=== PATIENT | female | born 1990 | race Caucasian/White ===

== ENCOUNTER → 2023-11-18 12:15 | Outpatient (BNV) | payer OTHER, SELFPAY | PROVIDERS: Visit Provider Psychiatry & Neurology Psychiatry | DX: F31.9 Bipolar disorder, unspecified (principal); F90.2 Attention-deficit hyperactivity disorder, combined type; F50.81 Binge eating disorder; F43.10 Post-traumatic stress disorder, unspecified; F31.81 Bipolar II disorder | CPT/HCPCS: 90792; 99212; 99213; 99499 ==

== ENCOUNTER 2023-11-21 07:45 | Outpatient (REF) | payer OTHER, SELFPAY ==
--- NOTE | 2023-11-21 07:54 | ECG_ITS ---
Test Reason : qtc check Blood Pressure : / mmHG Vent. Rate : 085 BPM Atrial Rate : 085 BPM P-R Int : 134 ms QRS Dur : 076 ms QT Int : 372 ms P-R-T Axes : 037 036 020 degrees QTc Int : 442 ms Normal sinus rhythm Normal ECG No previous ECGs available Referred By: Lu Quiroga Electronically Signed By:ANDREW EATON MD
[2023-11-21 08:06] LABS: MANUAL DIFF FLAG NO
[2023-11-21 08:31] LABS: Basophils Absolute Auto 0.1 X10*3/uL (0.0-0.2); Basophils Percent Auto 0.7 % (0-2); Eosinophils Absolute Auto 0.1 X10*3/uL (0.0-0.4); Eosinophils Percent Auto 1.8 % (0-4); Imm Gran Abs Auto 0.01 X10*3/uL (0.00-0.03); Imm Gran Pct Auto 0.1 % (0.0-0.4); Lymphocytes Percent Auto 26.4 % (20-40); Mean Corpuscular HGB Conc 34.1 g/dl (31.0-35.0); Mean Corpuscular Hemoglobin 30.8 pg (27.0-33.0); Mean Corpuscular Volume 90.1 fL (80.0-98.0); Mean Platelet Volume 9.8 fL (9.4-12.3); Monocytes Absolute Auto 0.5 X10*3/uL (0.1-1.2); Monocytes Percent Auto 7.1 % (2-11); Neutrophils Absolute Auto 4.9 x10*3/uL (2.0-8.3); Neutrophils Percent Auto 63.9 % (45-73); Platelet Count 263 X10*3/uL (160-400); Red Blood Count 4.55 X10*6/uL (4.20-5.50); Red Cell Distribution Width 12.6 % (11.0-16.0); White Blood Count 7.6 X10*3/uL (4.8-10.8)
[2023-11-21 08:56] LABS: Alanine Aminotransferase 27 U/L (0-31); Albumin Level 4.1 g/dL (3.5-5.0); Alkaline Phosphatase 92 U/L (39-117); Anion Gap 12 (12-20); Aspartate Amino Transferase 16 U/L (5-31); Bilirubin Total 0.3 mg/dL (0.0-1.0); Blood Urea Nitrogen 14 mg/dL (9-16); Calcium 9.5 mg/dL (8.4-10.2); Carbon Dioxide 20 mmol/L (22-29); Chloride 108 mmol/L (96-108); Cholesterol 170 mg/dL (<200); Estimated Glomerular Filt Rate > 60; Glucose Fasting 126 mg/dL (60-99); HDL Cholesterol 31 mg/dL (>40); Iron 59 mcg/dL (30-160); LDL Cholesterol Calculated 97 mg/dL (<100); Magnesium 1.9 mg/dL (1.6-2.6); Percent Iron Saturation 23 % (15-50); Potassium 3.8 mmol/L (3.3-5.1); Sodium 136 mmol/L (135-145); Total Iron Binding Capacity 257 mcg/dL (228-428); Total Protein 7.1 g/dL (6.5-8.0); Triglycerides 213 mg/dL (<150); Unsaturated Iron Binding 198 ug/dL
[2023-11-21 09:15] LABS: Ferritin 113 ng/mL (10-122); Free T4 (Free Thyroxine) 0.84 ng/dL (0.71-1.85); Insulin 47 uU/mL (2-29); Thyroid Stimulating Hormone 1.77 uIU/mL (0.32-4.0); Vitamin D 25-OH Total 16.9 ng/mL (>30)
[2023-11-21 09:20] LABS: Appearance Urine Turbid; Color Urine Yellow; Glucose Urine UA Negative (Negative); Leukocyte Esterase Urine Small (1+) (Negative); Nitrite Urine Positive (Negative); PH 5.5 (5.0-9.0); Specific Gravity - Urine >= 1.030 (1.005-1.025); UMIC TRIGGER UA YES; Urine Blood Negative (Negative); Urine Ketones Trace mg/dL (Negative); Urine Protein Trace mg/dL (Neg-Trace)
[2023-11-21 09:21] LABS: UPreg QC Valid YES; Urine Pregnancy NEGATIVE (NEGATIVE)
[2023-11-21 09:26] LABS: Folate 9.1 ng/mL (> or = 4.0); Vitamin B12 201 pg/mL (200-900)
[2023-11-21 11:07] LABS: Bacteria Urine 3+ (None Seen); Calcium Oxalate Crystals Urine Present; Hyaline Casts Urine 0-2 /LPF (0-2); RBC Urine 0-2 /HPF (0-2); Squamous Epithelial Cell Urine >20 /HPF (0-2)
[2023-11-22 10:29] LABS: Prolactin 8.7 ng/mL
== END 2023-11-21 07:46 | disposition home or self-care (01) ==
LOC: HO.LAB 07:45
PROVIDERS: Visit Provider Psychiatry & Neurology Psychiatry
DX: F39 Unspecified mood [affective] disorder (principal); F41.3 Other mixed anxiety disorders; E28.2 Polycystic ovarian syndrome
CPT/HCPCS: 36415; 80053; 80061; 81001; 81025; 82306; 82607; 82728; 82746; 83525; 83540; 83735; 84146; 84439; 84443; 85025; 93005

== ENCOUNTER → 2023-11-21 07:54 | Outpatient (BNV) | payer OTHER, SELFPAY | PROVIDERS: Visit Provider Internal Medicine Cardiovascular Disease | DX: I45.9 Conduction disorder, unspecified (principal) | CPT/HCPCS: 93010 ==

== ENCOUNTER 2023-11-28 13:49 | Outpatient (REF) | payer OTHER, SELFPAY ==
[2023-11-28 14:56] LABS: Appearance Urine Cloudy; Color Urine Yellow; Glucose Urine UA Negative (Negative); Leukocyte Esterase Urine Small (1+) (Negative); Nitrite Urine Positive (Negative); UMIC TRIGGER UA YES; Urine Blood Negative (Negative); Urine Ketones Negative (Negative); Urine Protein Negative (Neg-Trace)
[2023-11-28 15:01] LABS: Bacteria Urine 4+ (None Seen); Hyaline Casts Urine 0-2 /LPF (0-2); RBC Urine 0-2 /HPF (0-2); WBC Urine 21-50 /HPF (0-5)
== END 2023-11-28 13:50 | disposition home or self-care (01) ==
LOC: HO.LAB 13:49
PROVIDERS: Visit Provider Psychiatry & Neurology Psychiatry
DX: N39.0 Urinary tract infection, site not specified (principal)
CPT/HCPCS: 81001; 87086; 87088; 87186

== ENCOUNTER 2023-12-06 12:15 | Outpatient (RCR) | payer OTHER, SELFPAY ==
[2023-11-18 12:04] VITALS: BMI 52.7
[2023-11-18 12:05] VITALS: BP 104/70; PULSE 80; TEMP 36.4
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
--- NOTE | 2023-11-21 14:10 | HO.PHP ---
Client's case has been opened and reviewed in team
--- NOTE | 2023-11-22 15:47 | HO.PHP ---
Referral for OP therapy placed to [place], [place] location. Awaiting intake date and time.
--- NOTE | 2023-11-25 08:17 | HO.PHP ---
PHP admin, Paulette, informed the PHP team that Leah will not be coming into program due to being sick. Leah reported no safety concerns and disclosed she will be taking a COVID test. Uncertain to if Leah will be in attendance to program tomorrow.
--- NOTE | 2023-11-26 16:38 | HO.PHP ---
Pt called [facility] this morning 11/26/23 to report she will not be coming in to programming today due to illness, pt reports a cough and feeling unwell. Pt reported she is safe, no safety concerns.
--- NOTE | 2023-11-27 13:25 | PC.NURSE ---
Leah is looking for a new PCP as she stated her current PCP lives to far away and is going to be retiring in March. Patient called the PCP's office where her goes however they are not accepting new patient appointments at this time. She then called [facility] in [facility] at . She was told that they are taking new patients however she would need to fill out a new patient packet prior to making an appointment. She agreed to do this thus gave them her address so they can mail her the packet. She stated the practice is close to where she lives.
--- NOTE | 2023-11-28 14:54 | HO.PHP ---
Joann from [facility] called to confirm Leah?s intake OP therapy apt at [address] [place] [address], [place] with Ayla Fernandez (sp?) on December 09 at 10am.
--- NOTE | 2023-11-29 12:38 | PM.EVENT ---
Event Note Date of Service: 12/15/23 Event Note: Patient had asked to be seen at the end of the day regarding questions about medications but then had to leave so I reach out to her later however I was unable to reach her. Left message to try her back tomorrow. Time Spent With Patient Time: Total time managing care of this patient today ____ minutes.
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
--- NOTE | 2023-12-03 08:42 | HO.PHP ---
PHP admin, Paulette, informed the PHP team that Leah will not be in attendance to program due to having to attend to a situation regarding her . No safety concerns were reported.
--- NOTE | 2023-12-04 21:07 | P.PNPSP_ITS ---
Subjective Subjective Date of Service: 12/04/23 Reason For Visit: ADHD, BED, Bipolar II Interim History: Patient reports she is doing better than when we last spoke. She stopped the ABilify and has continued on oxcarbazepine. The exhaustion and daytime sleepiness has resolved since. She is sleeping well, but is having delayed onset of sleep by a few hours, often ruminating on stressors, but once she is asleep, she sleeps well. Her was arrested on Saturday after unknowingly missing his court date (which was later cleared), regardless she has been able to manage things and says despite the stressors of this past week her mood has been more level. Denies hopelessness or SI. She has not been able to fill Vyvanse as PA was rejected. She would still benefit from a long acting stimulant to help with her struggles with impulsivity, ADHD as well as manage Binge Eating Disorder. Discussed starting topiramate in the evenings to target anxiety, sleep and to help support weight loss. FBS was 126, elevated insulin level, apparently HbA1c was not ordered so will send for this. Has a new PCP appointment not until Apr 2024. She is tolerating metformin. She also continues on cipro for UTI, no longer symptomatic. Medication Compliance: Yes Side effects from medications: No Attending Groups: Yes Review of Systems Acute medical concerns: No Diagnostics Vital Signs (24Hr): BMI result Body Mass Index 52.7 Assessment & Plan Assessment & Plan (1) Bipolar II disorder: Status: Acute Code(s): F31.81 - Bipolar II disorder Assessment and Plan: r/o MDD with emotional dysregulation 2/t ADHD (2) ADHD (attention deficit hyperactivity disorder), combined type: Status: Acute Code(s): F90.2 - Attention-deficit hyperactivity disorder, combined type Assessment and Plan: per patient, ADHD diagnosed when she was a teenager History and clinical presentation also strongly suggestive of ADHD (3) Binge eating disorder: Status: Acute Code(s): F50.81 - Binge eating disorder Assessment and Plan: moderate-severe (4) Complex posttraumatic stress disorder: Status: Acute Code(s): F43.10 - Post-traumatic stress disorder, unspecified Plan lisdexamfetamine PA rejected will order Concerta 18 mg qam Abilify discontinued increase oxcarbazepine to 450 mg BID start topiramate 25-50 mg qhs continue to titrate lamotrigine to 50 mg qd continue metformin 500 mg BID continue propranolol 10-20 mg BID prn anxiety continue vitamin D3 99213 IU weekly for 12 weeks continue ciprofloxacin 250 mg q 12hr for 12 days lab work findings reviewed with patient - ?HbA1c still pending [place] [address] RxBIN: [id number] PCN: [id number] Group: [id number] Certification I certify that partial hospital treatment is medically necessary due to the symptoms and problems resulting from the patient's mental illness and the failure to treat the patient at the partial hospital level of care would likely result in the patient requiring inpatient psychiatric care which could not be prevented at a less intensive level of care. Total time managing care of this patient today __25__ minutes. Discharge Plan Discharge Attending provider: Lu Quiroga Medications: New oxcarbazepine 300 mg tablet See Rx Instructions .ROUTE .COMPLEX Qty: 30 0RF Rx Instructions: take 1/2 tablet po BID for 4-6 days, then increase to one tablet po BID ciprofloxacin HCl 250 mg tablet 250 mg PO Q12H 14 Days Qty: 28 0RF ergocalciferol (vitamin D2) [Drisdol] 1,250 mcg (50,000 unit) capsule 1,250 mcg PO QWEEK Qty: 12 0RF topiramate 25 mg tablet 25 - 50 mg PO QPM Qty: 30 0RF methylphenidate HCl [Concerta] 18 mg tablet extended release 24hr 18 mg PO QAM Qty: 14 0RF Rx Instructions: For ADHD. Partial Fill upon patient request. Continued metformin 500 mg tablet 500 mg PO BID Qty: 60 0RF Changed lamotrigine 25 mg tablet See Rx Instructions .ROUTE .COMPLEX Qty: 70 0RF Rx Instructions: take 2 tablets po daily for 2 weeks, then increase to 3 tablets po daily for 2 weeks Discontinued aripiprazole 15 mg tablet 15 mg PO DAILY Patient Comments: Last dose 4-5 days ago as she ran out of the medication. Reports 25 lb weight gain since the increase to 15 mg daily. No Action propranolol 10 mg tablet 10 - 20 mg PO BID PRN (Reason: anxiety) albuterol sulfate [Ventolin HFA] 90 mcg/actuation Hfa Aerosol Inhaler 2 puff INHALATION QID PRN (Reason: sob) Stand Alone Forms: Patient Portal Discharge page Print Language: Occitan Telehealth Telehealth Telehealth Platform: Telephone
--- NOTE | 2023-12-05 12:18 | P.PNPSP_ITS ---
Subjective Subjective Date of Service: 12/06/23 Reason For Visit: ADHD, BED, Bipolar II Interim History: Patient seen for follow-up, anticipating discharge at the end of program today.? Patient is doing better, mood is less irritable, more level. She feels much better since Abilify stopped and is still feeling stable. PAs was rejected for Vyvanse for BED and ADHD, and we also tried filling Adderall XR which was also rejected. HOwever the PA went through for the Concerta, I called and check with pharmacy, medicaiton is filled and she can pick that up and start on this tomorrow. For now I advise she limits use to 3x week to ensure she maintains stability. She continues on antibiotic course for UTI, symptoms have resolved since earlier in treatment. Sent out lab work for C&S and HbA1c which were not originally ordered.Other [place] [address] IU vitamin D2 weekly. Reports no acute issues or concerns. Medication compliant, medications well- tolerated. Denies any adverse effects.? Mood is stable.? Denies any hopelessness or SI. Denies thoughts of harming self or others at this time. Denies any aggressive ideation or HI. Denies any paranoia or AH or VH. Denies any issues with alcohol or substance use. Sleep, appetite, energy stable. Medication Compliance: Yes Side effects from medications: No Attending Groups: Yes Review of Systems Acute medical concerns: No Mental Status Exam Mental Status Exam Narrative: Alert, oriented, in no acute distress. Casually dressed, slightly unkempt. Calm, cooperative, engaged. No psychomotor agitation or neurovegetative retardation. Eye contact maintained. Mood depressed, anxious, irritable. Affect dysthymic, subdued, no lability noted. Speech normal. Thought process scattered, linear, coherent. Thought content related to stressors, executive dysfunction, feeling overwhelmed, some transient helplessness and hopelessness, denies SI, intention or plan. Denies any aggressive ideation. No paranoia or delusional content elicited. No evidence of psychosis. Insight and judgment fair but adequate. Diagnostics Vital Signs (24Hr): BMI result Body Mass Index 52.7 Assessment & Plan Assessment & Plan (1) Bipolar disorder, unspecified: Status: Acute Code(s): F31.9 - Bipolar disorder, unspecified (2) ADHD (attention deficit hyperactivity disorder), combined type: Status: Acute Code(s): F90.2 - Attention-deficit hyperactivity disorder, combined type Assessment and Plan: per patient, ADHD diagnosed when she was a teenager History and clinical presentation also strongly suggestive of ADHD (3) Binge eating disorder: Status: Acute Code(s): F50.81 - Binge eating disorder Assessment and Plan: moderate-severe (4) Complex posttraumatic stress disorder: Status: Acute Code(s): F43.10 - Post-traumatic stress disorder, unspecified Plan Disharge from [facility] Concerta 18 mg qam requiring PA - completed at 01:00 12/05 - PA Case #[id number] continue oxcarbazepine to 450 mg BID to target mood instability, impulsivity continue topiramate 25-50 mg qhs continue lamotrigine 50 mg qd (continue to titrate by 25 mg/d q 2 weeks until 100 mg/d) continue metformin 500 mg BID continue propranolol 10-20 mg BID prn anxiety continue vitamin D3 90821 IU weekly for 12 weeks continue ciprofloxacin 250 mg q 12hr for 12 days discontinued Abilify (exacerbating weight gain), lisdexamfetamine PA rejected repeat fasting glucose and check HbA1c refills sent to pharmacy defer further medication management to outpatient provider *Safety plan reviewed *Discharge diagnoses, treatment course, discharge plan have been reviewed with patient (including medication regime, medication management, potential side effects) as well as treatment rationale were also revisited *Discharge paperwork signed and given to patient, copy sent for scanning to chart Patient educated on: diagnosis Certification I certify that partial hospital treatment is medically necessary due to the symptoms and problems resulting from the patient's mental illness and the failure to treat the patient at the partial hospital level of care would likely result in the patient requiring inpatient psychiatric care which could not be prevented at a less intensive level of care. Total time managing care of this patient today ____ minutes. Discharge Plan Discharge Attending provider: Lu Quiroga Medications: New ciprofloxacin HCl 250 mg tablet 250 mg PO Q12H 14 Days Qty: 28 0RF ergocalciferol (vitamin D2) [Drisdol] 1,250 mcg (50,000 unit) capsule 1,250 mcg PO QWEEK Qty: 12 0RF topiramate 25 mg tablet 25 - 50 mg PO QPM Qty: 30 0RF guanfacine 1 mg tablet extended release 24 hr 1 mg PO DAILY Qty: 20 0RF methylphenidate HCl 18 mg tablet extended release 24hr 18 mg PO QAM Qty: 30 0RF Rx Instructions: Partial Fill upon patient request. lamotrigine 100 mg tablet 100 mg PO DAILY Qty: 30 0RF Rx Instructions: start once 2 weeks of 75 mg/d completed Continued albuterol sulfate [Ventolin HFA] 90 mcg/actuation Hfa Aerosol Inhaler 2 puff INHALATION QID PRN (Reason: sob) metformin 500 mg tablet 500 mg PO BID Qty: 60 0RF Changed lamotrigine 25 mg tablet See Rx Instructions .ROUTE .COMPLEX Qty: 70 0RF Rx Instructions: take 2 tablets po daily for 2 weeks, then increase to 3 tablets po daily for 2 weeks oxcarbazepine 300 mg tablet 450 mg PO BID 30 Days Qty: 90 0RF Discontinued propranolol 10 mg tablet 10 - 20 mg PO BID PRN (Reason: anxiety) aripiprazole 15 mg tablet 15 mg PO DAILY Patient Comments: Last dose 4-5 days ago as she ran out of the medication. Reports 25 lb weight gain since the increase to 15 mg daily. Stand Alone Forms: Patient Portal Discharge page Patient Education: ADHD in Adults (ED), ADHD in Adults (DC), ADHD in Adults (GEN) Print Language: Omani
--- NOTE | 2023-12-06 22:35 | HO.PHPPROGNO ---
Subjective Subjective Date of Service: 12/06/23 Reason For Visit: ADHD, BED, Bipolar II Diagnostics Vital Signs (24Hr): BMI result Body Mass Index 52.7 Assessment & Plan Certification I certify that partial hospital treatment is medically necessary due to the symptoms and problems resulting from the patient's mental illness and the failure to treat the patient at the partial hospital level of care would likely result in the patient requiring inpatient psychiatric care which could not be prevented at a less intensive level of care. Total time managing care of this patient today ____ minutes. Discharge Plan Discharge Attending provider: Lu Quiroga Medications: New ciprofloxacin HCl 250 mg tablet 250 mg PO Q12H 14 Days Qty: 28 0RF ergocalciferol (vitamin D2) [Drisdol] 1,250 mcg (50,000 unit) capsule 1,250 mcg PO QWEEK Qty: 12 0RF topiramate 25 mg tablet 25 - 50 mg PO QPM Qty: 30 0RF guanfacine 1 mg tablet extended release 24 hr 1 mg PO DAILY Qty: 20 0RF methylphenidate HCl 18 mg tablet extended release 24hr 18 mg PO QAM Qty: 30 0RF Rx Instructions: Partial Fill upon patient request. lamotrigine 100 mg tablet 100 mg PO DAILY Qty: 30 0RF Rx Instructions: start once 2 weeks of 75 mg/d completed Continued albuterol sulfate [Ventolin HFA] 90 mcg/actuation Hfa Aerosol Inhaler 2 puff INHALATION QID PRN (Reason: sob) metformin 500 mg tablet 500 mg PO BID Qty: 60 0RF Changed lamotrigine 25 mg tablet See Rx Instructions .ROUTE .COMPLEX Qty: 70 0RF Rx Instructions: take 2 tablets po daily for 2 weeks, then increase to 3 tablets po daily for 2 weeks oxcarbazepine 300 mg tablet 450 mg PO BID 30 Days Qty: 90 0RF Discontinued propranolol 10 mg tablet 10 - 20 mg PO BID PRN (Reason: anxiety) aripiprazole 15 mg tablet 15 mg PO DAILY Patient Comments: Last dose 4-5 days ago as she ran out of the medication. Reports 25 lb weight gain since the increase to 15 mg daily. Stand Alone Forms: Patient Portal Discharge page Patient Education: ADHD in Adults (ED), ADHD in Adults (DC), ADHD in Adults (GEN) Print Language: Austrian
== END 2023-12-06 23:59 | disposition home or self-care (01) ==
LOC: HO.PHPA 12:15
PROVIDERS: Visit Provider Psychiatry & Neurology Psychiatry
DX: F31.81 Bipolar II disorder (principal); F43.10 Post-traumatic stress disorder, unspecified; F41.1 Generalized anxiety disorder; F90.2 Attention-deficit hyperactivity disorder, combined type; F50.81 Binge eating disorder; Z79.899 Other long term (current) drug therapy
CPT/HCPCS: 90791; 90853

== ENCOUNTER 2023-12-07 08:15 | Outpatient (REF) | payer OTHER, SELFPAY ==
[2023-12-07 09:07] LABS: Estimated Average Glucose 103 mg/dL; Hemoglobin A1c % 5.2 % (<6.0)
[2023-12-07 09:14] LABS: Glucose Fasting 106 mg/dL (60-99)
== END 2023-12-07 08:16 | disposition home or self-care (01) ==
LOC: HO.LAB 08:15
PROVIDERS: Visit Provider Psychiatry & Neurology Psychiatry
DX: R73.9 Hyperglycemia, unspecified (principal); F50.81 Binge eating disorder
CPT/HCPCS: 36415; 82947; 83036